=== PATIENT | male | born 1980 | race Two or more races ===

== ENCOUNTER 2022-12-13 10:07 | Outpatient (CLI) | payer OTHER ==
[~2022-12-13 10:07] MED LIST: AMBIEN10 MG PO; PRISTIQ ER50 MG PO
== END 2022-12-13 12:18 | disposition home or self-care (01) ==
LOC: LAB 10:07
PROVIDERS: ATTEND Surgery
DX: Z20.822 Contact with and (suspected) exposure to COVID-19 (principal); Z88.0 Allergy status to penicillin; Z88.6 Allergy status to analgesic agent

== ENCOUNTER 2022-12-14 05:52 | Day surgery (SDC) | payer OTHER ==
[~2022-12-14] VITALS: Ht 175.3 cm; Wt 79.4 kg
[2022-12-14] MEDS ORDERED: PERCOCET 5-3251 EACH PO (09:57)
== END 2022-12-14 17:30 | disposition home or self-care (01) ==
LOC: CIR.AMB 05:52
PROVIDERS: ATTEND Surgery
DX: N52.9 Male erectile dysfunction, unspecified (principal); N48.6 Induration penis plastica; N47.1 Phimosis; Z20.822 Contact with and (suspected) exposure to COVID-19; Z88.0 Allergy status to penicillin
CPT/HCPCS: 54405; C1813